=== PATIENT | female | born 1955 | race Caucasian/White ===

== ENCOUNTER 2017-08-08 20:40 | Emergency (ER) | payer OTHER ==
[~2017-08-08] VITALS: Ht 167.6 cm; Wt 104.0 kg
[~2017-08-08 20:40] MED LIST: COROTSUS LEFT EAR; LISI-222 PO
[2017-08-08 22:47] LABS: CLARITY,URINE CLEAR (Clear); COLOR,URINE YELLOW (Yellow); GLUCOSE, URINE NEGATIVE (Neg); KETONES,URINE NEGATIVE (Neg); LEUKOCYTE ESTERASE ,URINE NEGATIVE (Neg); NITRITES, URINE NEGATIVE (Neg); OCCULT BLOOD,URINE TRACE-INTACT (Neg); PH,URINE 5.5 (4.8-8.0); PROTEIN,URINE NEGATIVE (Neg); UROBILINOGEN,URINE 0.2 E.U/dL (0.2-1.0)
[2017-08-08 22:57] LABS: UA COLLECTION TYPE CLN CATCH MIDSTREAM
[2017-08-08 22:58] LABS: CAL OXALATE CRYSTALS 1+ /HPF (NEGATIVE)
[2017-08-08 22:59] LABS: BACTERIA,URINE FEW /HPF (Neg); MUCUS STRANDS FEW /LPF (Neg); RBC,URINE 0-2 /HPF (0-2); SQUAMOUS EPITHELIAL CELL,UR NONE SEEN /LPF (FEW); WBC,URINE 0-4 /HPF (0-4)
[2017-08-08 23:00] VITALS: BP 138/37
[2017-08-08] MEDS ORDERED: acetaminophen 325mg tablet PO ONE (23:45)
[2017-08-08] MEDS ORDERED: LIDOcaine 5% patch TP ONE (23:45)
[2017-08-08] MEDS ORDERED: LIDO700A32 TOP (23:45)
[2017-08-08] MEDS ORDERED: HYDR-3965 PO (23:45)
[2017-08-08] MEDS ORDERED: CYCL-1 PO (23:45)
[2017-08-08] MEDS ORDERED: ketorolac trometh inj. 60 MG/2 ML VIAL IM ONE (23:45)
== END 2017-08-08 23:55 | disposition home or self-care (01) ==
LOC: ER 20:40
DX: M54.5 Low back pain (principal); G89.29 Other chronic pain; Z90.710 Acquired absence of both cervix and uterus; Z88.5 Allergy status to narcotic agent; Z79.899 Other long term (current) drug therapy
CPT/HCPCS: 81001; 96372; 99283; J1885